=== PATIENT | male | born 1975 | race Two or more races ===

== ENCOUNTER 2017-05-03 21:17 | Emergency (ER) | payer OTHER ==
[~2017-05-03] VITALS: Ht 170.2 cm; Wt 75.0 kg
[2017-05-03 21:24] VITALS: Ht 170.2 cm; Wt 75.0 kg
[2017-05-04 01:39] VITALS: BP 134/85
== END 2017-05-04 01:39 | disposition home or self-care (01) ==
LOC: ED 21:17
DX: J18.9 Pneumonia, unspecified organism (principal); Z88.8 Allergy status to other drugs, medicaments and biological substances
CPT/HCPCS: 87804; J0696; J7512; J7613; Q0092

== ENCOUNTER 2017-07-29 01:30 | Emergency (ER) | payer OTHER ==
[~2017-07-29] VITALS: Ht 170.2 cm; Wt 72.1 kg
[2017-07-29 01:52] VITALS: Ht 170.2 cm; Wt 72.1 kg
[2017-07-29 03:44] VITALS: BP 128/69
== END 2017-07-29 03:44 | disposition home or self-care (01) ==
LOC: ED 01:30
DX: L02.01 Cutaneous abscess of face (principal)
CPT/HCPCS: 90715

== ENCOUNTER 2019-02-06 20:00 | Emergency (ER) | payer OTHER ==
[~2019-02-06] VITALS: Ht 170.2 cm; Wt 76.7 kg
[2019-02-06 20:05] VITALS: Ht 170.2 cm; Wt 76.7 kg
[2019-02-06 20:28] LABS: BASOPHIL % 1.4 % (0-2); PLATELET COUNT 351 x10^3mcL (130-400); RED CELL DISTRIBUTION WIDTH 13.4 % (11.5-14.5)
[2019-02-06 20:40] LABS: CALCIUM 8.3 mg/dL (8.5-10.1); CARBON DIOXIDE 29.5 mmol/L (21-32); CHLORIDE SERUM 106 mmol/L (98-107); CREATININE SERUM 0.9 mg/dL (0.7-1.3); GFR1 > 60 mL/min; GLUCOSE SERUM 92 mg/dL (74-106); POTASSIUM SERUM 4.1 mmol/L (3.5-5.1); SODIUM SERUM 141 mmol/L (136-145)
[2019-02-06 20:45] LABS: ALBUMIN 3.4 g/dL (3.4-5.0); ALKALINE PHOSPHATASE 104 U/L (46-116); ALT/SGPT 28 U/L (16-63); AST/SGOT 6 U/L (15-37); BILIRUBIN TOTAL 0.2 mg/dL (0.20-1.00); TOTAL PROTEIN, SERUM 6.9 g/dL (6.4-8.2)
[2019-02-06 21:43] VITALS: BP 122/79
== END 2019-02-06 21:43 | disposition home or self-care (01) ==
LOC: ED 20:00
DX: R07.89 Other chest pain (principal); Z88.8 Allergy status to other drugs, medicaments and biological substances
CPT/HCPCS: 36415; J1885

== ENCOUNTER 2019-05-21 18:26 | Emergency (ER) | payer OTHER ==
[~2019-05-21] VITALS: Ht 167.6 cm; Wt 73.9 kg
[2019-05-21 18:27] VITALS: BP 136/90
== END 2019-05-21 18:37 | disposition home or self-care (01) ==
LOC: ED 18:26
DX: J06.9 Acute upper respiratory infection, unspecified (principal); Z91.048 Other nonmedicinal substance allergy status

== ENCOUNTER 2020-03-25 15:25 | Emergency (ER) | payer OTHER ==
[~2020-03-25] VITALS: Ht 167.6 cm; Wt 74.8 kg
[2020-03-25 15:40] VITALS: Ht 167.6 cm; Wt 74.8 kg
[2020-03-25 19:14] VITALS: BP 117/69
== END 2020-03-25 19:14 | disposition home or self-care (01) ==
LOC: ED 15:25
DX: L50.9 Urticaria, unspecified (principal); Z91.048 Other nonmedicinal substance allergy status
CPT/HCPCS: J0171; J1200; J7512